=== PATIENT | male | born 1990 | race Two or more races ===

== ENCOUNTER 2021-12-08 21:24 | Emergency (ER) | payer OTHER ==
[~2021-12-08] VITALS: Ht 177.8 cm; Wt 79.4 kg
--- NOTE | 2021-12-08 22:35 | NUR ---
Patient placed in 4a at this time
[2021-12-08] MEDS ORDERED: LIDOCAINE HCL 1% 20 ML VIAL IJ ONE (22:45)
--- NOTE | 2021-12-08 22:45 | NUR ---
Dr Lane into suture patient.
--- NOTE | 2021-12-08 22:55 | NUR ---
AFTER BEING SUTURE BY DR WILSON, PATIENT DID NOT WANT TO WAIT FOR ACI. PATIENT WAS ENCOURAGE TO WAIT FOR DISCHARGE INSTRUCTION BUT REFUSED STATING "I AM GOOD, MY DAD IS WAITING OUTSIDE FOR ME" AND WALKED OUT OF ER. DR WILSON GAVE CARE INSTRUCTION WHILE PATIENT WAS BEING SUTURED.
== END 2021-12-08 23:06 | disposition home or self-care (01) ==
LOC: ER 21:24
DX: S61.011A Laceration without foreign body of right thumb without damage to nail, initial encounter (principal); Y09 Assault by unspecified means; Y92.89 Other specified places as the place of occurrence of the external cause; R03.0 Elevated blood-pressure reading, without diagnosis of hypertension
CPT/HCPCS: A4663